=== PATIENT | female | born 1955 | race African-American/Black ===

== ENCOUNTER 2016-07-05 07:12 | Emergency (ER) | payer OTHER ==
[2016-07-05 07:22] VITALS: TEMP 98.8; BMI 39.4
--- NOTE | 2016-07-05 07:32 | PDOC ---
History of Present Illness - General Chief Complaint: Pain Stated Complaint: RIGHT LEG PAIN Time Seen by Provider: 07/05/16 07:28 History Source: Patient Exam Limitations: No Limitations - History of Present Illness Initial Comments: 07/05/16 07:32 CHIEF COMPLAINT: Leg pain HISTORY OF PRESENT ILLNESS: This is a 61 year old female with a history of HTN, cigarette smoking, COPD, and right knee replacement x 4 yrs ago at [facility] who presents complaining of one week of right thigh pain and swelling. She denies any new injury to the area. She has not had fevers/chills or any other systemic symptoms. She reports that since her knee replacement surgery 4 years ago, she has been unable to walk normally ("drags the leg") and needs assistance to do all simple tasks. V/s on arrival are notable for P 115. REVIEW OF SYSTEMS: GENERAL/CONSTITUTIONAL: No fever or chills. No weakness. No weight change. CARDIOVASCULAR: No chest pain or palpitations. RESPIRATORY: No cough, wheezing, or shortness of breath. GASTROINTESTINAL: No nausea, vomiting, diarrhea or constipation. GENITOURINARY: No dysuria, frequency, or change in urination. MUSCULOSKELETAL: See HPI. SKIN: No rash or easy bruising. NEUROLOGIC: No headache, vertigo, loss of consciousness, or loss of sensation. HEMATOLOGIC/LYMPHATIC: No anemia, easy bleeding, or history of blood clots. ALLERGIC/IMMUNOLOGIC: No hives or skin allergy. No latex allergy. PHYSICAL EXAM: GENERAL: The patient is awake, alert, and fully oriented, in no acute distress. ENT: Pupils equal, round and reactive to light, extraocular movements intact, sclera anicteric, conjunctiva clear. Neck supple. LUNGS: Clear to auscultation bilaterally. Normal excursion. No respiratory distress or use of accessory muscles. CV: RRR, S1/S2, no MRG. Cap refill < 2 sec. ABDOMEN: Soft, non-distended, non-tender. EXTREMITIES: Unable to flex right to 90 degrees (baseline), + calf tenderness, + right lateral thigh tenderness and swelling. No erythema or fluctuance. NEUROLOGICAL: Normal speech. CN II-XII grossly intact. PSYCH: Normal mood, normal affect. SKIN: Warm, dry, normal turgor, no rashes or lesions noted. Past History - Past Medical History Allergies/Adverse Reactions: Allergies Allergy/AdvReac Type Severity Reaction Status Date / Time No Known Allergies Allergy Verified 07/05/16 07:22 COPD: Yes HTN: Yes - Psycho/Social/Smoking Cessation Hx Suicidal Ideation: No Smoking History: Current every day smoker Number of Cigarettes Smoked Daily: 3 Information on smoking cessation initiated: No *Physical Exam - Vital Signs Last Vital Signs Temp Pulse Resp BP Pulse Ox 98.8 F 115 H 18 146/88 97 07/05/16 07:16 07/05/16 07:16 07/05/16 07:16 07/05/16 07:16 07/05/16 07:16 Heart Score/ECG Review - ECG Intrepretation Comment:: 07/05/16 07:42 NSR at 92 bpm, LVH. Medical Decision Making - Medical Decision Making 07/05/16 08:52 A/P: 61 year old female with right thigh pain and swelling. No fever, warmth, or fluctuance to suggest infection. 1. Duplex u/s to r/o DVT 2. Femur xray 3. Toradol IM for pain 4. Orthopedic referral 07/05/16 09:32 U/s is negative for DVT. 07/05/16 09:42 Femur xray: no acute pathology. 07/05/16 09:42 Repeat HR=89. *DC/Admit/Observation/Transfer Diagnosis at time of Disposition: Pain of right lower extremity - Discharge Dispostion Disposition: HOME Condition at time of disposition: Improved Admit: No - Referrals Referrals: Sha Ross [Primary Care Provider] - Ricardo Velasquez MD [Staff Physician] - 1 week - Patient Instructions Printed Discharge Instructions: DI for Leg Pain Additional Instructions: -Rest and apply heat to the painful area. -Continue pain medications as previously prescribed. -Follow up with orthopedics (referral enclosed) if symptoms persist. -Return here for any new or concerning symptoms.
[2016-07-05] MEDS ORDERED: KETOROLAC TROMETHAMINE 30 MG/1 ML VIAL IM ONE (07:38)
[2016-07-05] MEDS ORDERED: KETOROLAC TROMETHAMINE 30 MG/1 ML VIAL ONE (08:08)
[2016-07-05 09:56] VITALS: BP 137/76; PULSE 85
--- NOTE | 2016-07-06 17:42 | EKG ---
Test Reason : Blood Pressure : / mmHG Vent. Rate : 092 BPM Atrial Rate : 092 BPM P-R Int : 142 ms QRS Dur : 074 ms QT Int : 362 ms P-R-T Axes : 054 007 032 degrees QTc Int : 447 ms NORMAL SINUS RHYTHM POSSIBLE LEFT ATRIAL ENLARGEMENT LEFT VENTRICULAR HYPERTROPHY ABNORMAL ECG NO PREVIOUS ECGS AVAILABLE Confirmed by FLORENCIA VALENTIN, GORDY ([id number]) on 07/06/2016 5:41:53 PM Referred By: Confirmed By:GORDY DON MD
== END 2016-07-05 09:56 | disposition home or self-care (01) ==
LOC: JER 07:12
PROC: 3E0233Z Introduction of Anti-inflammatory into Muscle, Percutaneous Approach (ICD-10-PCS; principal; 2016-07-05)
DX: M79.604 Pain in right leg (principal); I10 Essential (primary) hypertension; J44.9 Chronic obstructive pulmonary disease, unspecified; F17.210 Nicotine dependence, cigarettes, uncomplicated
CPT/HCPCS: 73552-TC-RT; 93005; 93010; 93971-TC; 96372; 99281-25

== ENCOUNTER 2017-08-15 10:10 | Emergency (ER) | payer OTHER ==
[2017-08-15] MEDS ORDERED: ACETAMINOPHEN 1000 MG/100 ML VIAL (NON FORMULARY) IVPB ONE (11:03)
[2017-08-15 11:09] VITALS: BP 105/63; PULSE 85; TEMP 97.5; BMI 38.6
--- NOTE | 2017-08-15 11:36 | PDOC ---
History of Present Illness - General Chief Complaint: Shortness of Breath Stated Complaint: DIFFICULTY BREATHING Time Seen by Provider: 08/15/17 10:49 History Source: Patient Exam Limitations: No Limitations - History of Present Illness Initial Comments: 08/15/17 11:29 Patient is a 62F with history of HTN, COPD, TKR on right side (2012), active smoker here today complaining of shortness of breath with left sided chest pain worse with inspiration. Patient is also complaining of pain underneath the right knee knee radiating to her back with increased swelling over the past three days. Patient denies trauma to the knee and states that she has had chronic knee pain for some time, but this pain is different for her. She denies recent travel. Patient denies fevers, chills, nausea, and vomiting. Past History - Past Medical History Allergies/Adverse Reactions: Allergies Allergy/AdvReac Type Severity Reaction Status Date / Time No Known Allergies Allergy Verified 08/15/17 10:56 COPD: Yes HTN: Yes - Suicide/Smoking/Psychosocial Hx Smoking History: Current every day smoker Have you smoked in the past 12 months: No Number of Cigarettes Smoked Daily: 3 Information on smoking cessation initiated: No Hx Alcohol Use: No Drug/Substance Use Hx: No Substance Use Type: None Review of Systems - Review of Systems Comments:: 08/15/17 11:36 GENERAL/CONSTITUTIONAL: No fever or chills. No weakness. HEAD, EYES, EARS, NOSE AND THROAT: No change in vision. No sore throat. CARDIOVASCULAR: Positive for chest pain and shortness of breath RESPIRATORY: No cough, wheezing, or hemoptysis. GASTROINTESTINAL: No nausea, vomiting, diarrhea or constipation. GENITOURINARY: No dysuria, frequency, or change in urination. MUSCULOSKELETAL: Positive for right knee pain. No neck or back pain. SKIN: No rash NEUROLOGIC: No headache, vertigo, loss of consciousness, or change in strength/ sensation. HEMATOLOGIC/LYMPHATIC: No anemia, easy bleeding, or history of blood clots. ALLERGIC/IMMUNOLOGIC: No hives or skin allergy. *Physical Exam - Vital Signs Last Vital Signs Temp Pulse Resp BP Pulse Ox 97.5 F L 85 16 105/63 98 08/15/17 10:10 08/15/17 10:10 08/15/17 10:10 08/15/17 10:10 08/15/17 10:10 - Physical Exam Comments: 08/15/17 11:37 GENERAL: Awake, alert, and fully oriented, in no acute distress HEAD: No signs of trauma, normocephalic, atraumatic EYES: PERRLA, EOMI, sclera anicteric, conjunctiva clear ENT: Auricles normal inspection, hearing grossly normal, nares patent, oropharynx clear without exudates. Moist mucosa NECK: Normal ROM, supple, no lymphadenopathy, JVD, or masses LUNGS: Tachypneic, speaks full sentences, clear to auscultation bilaterally HEART: Regular rate and rhythm, normal S1 and S2, no murmurs, rubs or gallops, peripheral pulses normal and equal bilaterally. ABDOMEN: Soft, nontender, normoactive bowel sounds. No guarding, no rebound. No masses EXTREMITIES: R leg swollen more than left, tender to palpation along posterior right thigh NEUROLOGICAL: Cranial nerves II through XII grossly intact. Normal speech, no focal sensorimotor deficits SKIN: Warm, Dry, normal turgor, no rashes or lesions noted. Heart Score/ECG Review - History History: Slightly suspicious - Electrocardiogram EKG: Normal - Age Age: 45-65 - Risk Factors Risk Factors Heart Score: Yes Hx Hypercholesterolemia, Yes Hx Hypertension, Yes Hx Obesity Based on the list above the patient has:: >/=3 risk factors or Hx atherosclerotic disease - Troponin Troponin: </= normal limit - Score Heart Score - Total: 3 ED Treatment Course - LABORATORY CBC & Chemistry Diagram: 08/15/17 12:11 08/15/17 12:11 - RADIOLOGY Radiology Studies Ordered: Category Date Time Status CHEST CTA [CT] Stat CT Scan 08/15/17 11:03 Ordered CHEST X-RAY PORTABLE* [RAD] Stat Radiology 08/15/17 11:02 Ordered DUPLEX VASCUL US-1 LEG [US] Stat Ultrasound 08/15/17 11:03 Ordered Medical Decision Making - Medical Decision Making 08/15/17 11:40 Patient is 62F with history of COPD, HTN, Smoker, TKR here today with leg swelling and chest pain. Vital signs stable and normal. DDx includes, but is not limited to: DVT, PE, ACS, arrhythmia, COPD exacerbation. No wheezing on exam. Will start with cardiac workup, plan on doing CTA to evaluate for PE. EKG shows normal sinus rhythm with rate of 91bpm. No st elevations/depressions. No significant t wave abnormalities. Normal QRS/QTc/RI intervals. 08/15/17 13:44 Laboratory Tests 08/15/17 08/15/17 08/15/17 12:11 12:11 12:11 WBC 13.2 H Hgb 13.9 Hct 41.1 Plt Count 304 D-Dimer 350 BUN 12 Creatinine 0.9 Troponin I < 0.02 B-Natriuretic Peptide 83.48 CBC shows leukocytosis. D-dimer negative. CMP reassuring. Troponin undetectable and BNP wnl. DVT US and CTPA pending. 08/15/17 13:52 DVT US negative. 08/15/17 15:19 Patient reports that her chest pain has resolved with tylenol. Patient is refusing CTPA and wants to go home stating that she feels better. Patient is now low risk for PE given no DVT found on exam and negative D-dimer. Shared decision making done with patient and believe that discharge is a reasonable plan given resolution of symptoms, undetectable troponin, and negative d-dimer. Patient given return precautions. Patient instructed to follow up with her PCP. Patient states that she is still having some pain with her right knee, given ibuprofen before discharge. *DC/Admit/Observation/Transfer Diagnosis at time of Disposition: Leg pain, right - Discharge Dispostion Disposition: HOME Condition at time of disposition: Good Decision to Admit order: No - Referrals Referrals: Sha Ross [Primary Care Provider] - - Patient Instructions Printed Discharge Instructions: DI for Atypical Chest Pain, DI for Knee Pain Additional Instructions: Please return if you have any new, worsening or concerning symptoms. Please call your PCP today to follow up regarding your chest and knee pain today. For your knee pain, please take tylenol 650mg up to 4 times per day and ibuprofen 400mg up to 3 times per day. - Post Discharge Activity
[2017-08-15] MEDS ORDERED: ACETAMINOPHEN INJECTION 100 ML IVPB ONE ×2 (11:59→12:13)
[2017-08-15 12:27] LABS: BASO % 0.8 % (0-2.0); EOS % 2.1 % (0-4.5); HEMATOCRIT 41.1 % (32.4-45.2); HEMOGLOBIN 13.9 GM/dL (10.7-15.3); MCH 31.8 pg (25.7-33.7); MCHC 33.9 g/dl (32.0-36.0); MEAN CELL VOLUME 93.8 fl (80-96); MEAN PLT VOLUME 8.3 fl (7.5-11.1); NEUT % 67.1 % (42.8-82.8); PLATELET COUNT 304 K/MM3 (134-434); RBC 4.38 M/mm3 (3.60-5.2); RDW 15.5 % (11.6-15.6); WHITE BLOOD COUNT 13.2 K/mm3 (4.0-10.0)
[2017-08-15 12:48] LABS: INR 0.98 (0.82-1.09); PROTHROMBIN TIME (PATIENT) 11.1 SEC (9.7-13.0)
[2017-08-15 12:55] LABS: ALBUMIN 3.4 g/dl (3.4-5.0); ANION GAP 8 (8-16); BLOOD UREA NITROGEN 12 mg/dL (7-18); CALCIUM 8.7 mg/dL (8.5-10.1); CHLORIDE 110 mmol/L (98-107); CO2 23 mmol/L (21-32); CREATININE 0.9 mg/dL (0.55-1.02); GLUCOSE,RANDOM 98 mg/dL (74-106); SGPT/ALT 32 U/L (12-78); SODIUM 141 mmol/L (136-145)
[2017-08-15 13:00] LABS: ALK PHOS 183 U/L (45-117); BILIRUBIN,TOTAL 0.6 mg/dL (0.2-1.0); N-TERMINAL BNP 83.48 pg/ml (5-125); TOT PROT 7.3 g/dl (6.4-8.2)
[2017-08-15 13:07] LABS: MAGNESIUM 2.2 mg/dL (1.8-2.4); POTASSIUM 4.6 mmol/L (3.5-5.1); SGOT/AST 27 U/L (15-37)
[2017-08-15] MEDS ORDERED: ALBUTEROL SO4 2.5/IPRATROPIUM 0.5 INH SOL 3 ML VIAL.NEB. NEB ONE (13:37)
--- NOTE | 2017-08-15 13:44 | PDOC ---
Attending Attestation - HPI HPI: 08/15/17 13:49 The patient is a 62 year old female with a significant PMH of hypertension, COPD, and TKR(2012) who presents to the emergency department with shortness of breath since earlier today. The patient reports that she was getting ready to go to doctors office this morning and she was walking down the stairs when she had an onset of shortness of breath, The patient reports associated left sided chest pain that is worsened with inspiration. She also reports associated cough. The patient also reports 3 days or right leg pain. She denies any headache or dizziness. She denies any fever, chills, nausea, vomit, diarrhea or constipation. The patient denies any urinary symptoms. The patient denies any other complaints. It is noted that the patient is a smoker. Documentation prepared by Gianluca Carver, acting as medical auditor for Segun Landin MD. - Physicial Exam PE: 08/15/17 13:49 Vitals: Triage vital signs reviewed General Appearance: No acute distress, well nourished, well developed Head: Atraumatic Neck: Supple; No nuchal rigidity Chest Wall: Nontender Cardiac: Regular rate and rhythm, no murmurs, no rubs, no gallops Lungs:(+) crackles at base. Clear to auscultation bilateral, good air movement bilaterally Abdomen: Soft, nondistended, normal bowel sounds, nontender to palpation Genitourinary: Rectal: Exam deferred Extremities: Full range of motion to all extremities, no cyanosis, clubbing, or edema Skin: Warm and dry, no rashes or lesions, no rash, no petechiae Psych: Normal mood, normal affect - Medical Decision Making 08/15/17 13:50 The patient is a 62 year old female with a significant PMH of hypertension, COPD, and TKR(2012) who presents to the emergency department with shortness of breath since earlier today. The patient will receive a chest CT and a right leg CT. <Gianluca Carver - Last Filed: 08/15/17 13:49> - Resident Resident Name: Anthony Ley - ED Attending Attestation I have performed the following: I have examined & evaluated the patient, The case was reviewed & discussed with the resident, I agree w/resident's findings & plan, Exceptions are as noted - Medical Decision Making 08/15/17 16:18 She presents to ED with right lower extremity pain and swelling and some mild dyspnea. Vital signs within normal limits cannot use per criteria given patient' s age lungs are clear We'll check labs d-dimer EKG troponin Doppler lower extremity observe and reassess D-dimer negative no evidence of DVT on ultrasound patient feels much better with no intervention low suspicion for PE at this time Findings, the need for follow-up and strict return instructions discussed with patient. <Segun Landin - Last Filed: 08/15/17 16:18> Heart Score/ECG Review - ECG Impressions Comment:: 08/15/17 16:17 EKG performed at 11:13 AM demonstrates sinus rhythm [address] elevations or T-wave inversions Interpreted by me. <Segun Landin - Last Filed: 08/15/17 16:18>
[2017-08-15] MEDS ORDERED: IBUPROFEN 400 MG TABLET (FP) PO ONE ×2 (15:22→15:32)
--- NOTE | 2017-08-16 11:58 | EKG ---
Test Reason : Blood Pressure : / mmHG Vent. Rate : 091 BPM Atrial Rate : 091 BPM P-R Int : 154 ms QRS Dur : 080 ms QT Int : 378 ms P-R-T Axes : 057 010 037 degrees QTc Int : 464 ms NORMAL SINUS RHYTHM MINIMAL VOLTAGE CRITERIA FOR LVH, MAY BE NORMAL VARIANT BORDERLINE ECG Confirmed by MD HSY, JEANNE ([id number]) on 08/16/2017 11:58:34 AM Referred By: Confirmed By:JEANNE BEGUM MD
== END 2017-08-15 15:28 | disposition home or self-care (01) ==
LOC: JER 10:10
PROC: 3E033NZ Introduction of Analgesics, Hypnotics, Sedatives into Peripheral Vein, Percutaneous Approach (ICD-10-PCS; principal; 2017-08-15)
DX: M79.604 Pain in right leg (principal); I10 Essential (primary) hypertension; F44.9 Dissociative and conversion disorder, unspecified; F17.210 Nicotine dependence, cigarettes, uncomplicated; Z96.651 Presence of right artificial knee joint
CPT/HCPCS: 36415; 71045-TC-FY; 80053; 82550; 83735; 83880; 84484; 85025; 85379; 85610; 93005; 93010; 93971-TC; 96374; 99283-25; J0131

== ENCOUNTER 2022-02-02 11:53 | Emergency (ER) | payer OTHER ==
[2022-02-02 12:03] VITALS: BP 135/93; PULSE 89; RESP 18; TEMP 97.8; BMI 41.8
== END 2022-02-02 14:14 | disposition home or self-care (01) ==
LOC: JER 11:53
DX: J20.9 Acute bronchitis, unspecified (principal)
CPT/HCPCS: 0241U-QW; 71046-TC-FY; 99283-25